=== PATIENT | female | born 1970 | race Caucasian/White ===

== ENCOUNTER → 2019-08-02 | Outpatient (REF) | LOC: M LAB LCGH 14:22 | PROVIDERS: ATTEND Obstetrics & Gynecology | DX: D48.9 Neoplasm of uncertain behavior, unspecified (principal) ==

== ENCOUNTER → 2022-10-05 | Outpatient (REF) | payer BC | LOC: M SFHCDERM 16:38 | PROVIDERS: ATTEND Physician Assistant | DX: D22.5 Melanocytic nevi of trunk (principal) ==

== ENCOUNTER → 2022-11-17 | Outpatient (REF) | payer BC | LOC: M SFHCDERM 14:15 | PROVIDERS: ATTEND Physician Assistant | DX: L90.5 Scar conditions and fibrosis of skin (principal) ==